=== PATIENT | female | born 1975 | race Caucasian/White ===

== ENCOUNTER → 2017-09-02 | Outpatient (CLI) | payer BC ==
[~2017-09-02] MED LIST: IRON PO; MULT-516 PO
== END ==
LOC: STAR 08:03
PROVIDERS: ATTEND Obstetrics & Gynecology Female Pelvic Medicine and Reconstructive Surgery
DX: Z02.9 Encounter for administrative examinations, unspecified (principal)

== ENCOUNTER → 2017-09-02 | Outpatient (CLI) | payer BC, OTHER ==
[2017-09-02 09:40] LABS: MEAN CORPUSCULAR HEMOGLOBIN 20.8 pg (27.0-34.8); MEAN CORPUSCULAR HGB CONC 30.7 g/dL (32.4-35.8); MEAN PLATELET VOLUME 8.1 fL (7.4-10.4); PLATELET COUNT 243 x10^3/uL (130-400); RED CELL DISTRIBUTION WIDTH 26.2 % (9.6-15.2)
[2017-09-02 09:43] LABS: MD YES
[2017-09-02 09:46] LABS: BASOS#(MANUAL) 0.04 x10^3/uL (0-0.1); BASOS% (MANUAL) 1 % (0-1); EOS#(MANUAL) 0.22 x10^3/uL (0.0-0.4); EOS% (MANUAL) 5 % (1-7); LYMPHS% (MANUAL) 28 % (22-44); MONOS% (MANUAL) 7 % (2-9); SEG#(MANUAL) 2.54 x10^3/uL (1.8-6.8); SEGS% (MANUAL) 59 % (42-75)
[2017-09-02 09:49] LABS: ANISOCYTOSIS 2+; POLYCHROMASIA 1+
[2017-09-02 09:50] LABS: HYPOCHROMIA 1+
[2017-09-02 09:51] LABS: <PLATELET ESTIMATE> ADEQUATE; <PLT MORPHOLOGY> NORMAL PLT MORPH; MICROCYTOSIS 2+; OVALOCYTES 1+
== END | disposition home or self-care (01) ==
LOC: MERGE 08:00 → STAR 08:11
PROVIDERS: ATTEND Obstetrics & Gynecology Female Pelvic Medicine and Reconstructive Surgery
DX: Z01.818 Encounter for other preprocedural examination (principal); N94.6 Dysmenorrhea, unspecified; R10.2 Pelvic and perineal pain; N39.3 Stress incontinence (female) (male); N93.8 Other specified abnormal uterine and vaginal bleeding
CPT/HCPCS: 36415; 85025